=== PATIENT | female | born 1970 | race Hispanic/Latino ===

== ENCOUNTER → 2021-08-25 | Outpatient (CLI) | payer BC | LOC: MAMMO 10:26 | PROVIDERS: ATTEND Family Medicine | DX: Z12.31 Encounter for screening mammogram for malignant neoplasm of breast (principal) | CPT/HCPCS: 77067 ==

== ENCOUNTER 2023-09-16 07:50 | Observation (INO) | payer BC ==
[2023-09-11 13:47] LABS: BASOPHILS % 0.8 % (0.0-1.0); EOSINOPHILS # (AUTO) 0.2 (0.0-0.4); EOSINOPHILS % 4.1 % (0.0-6.0); HEMATOCRIT 35.2 % (34.2-44.1); HEMOGLOBIN 11.6 g/dL (12.0-16.0); LYMPHOCYTES # (AUTO) 1.9 (1.0-3.2); MEAN CORPUSCULAR HEMOGLOBIN 31.7 pg (28-32); MEAN CORPUSCULAR VOLUME 96.2 fL (81-99); MONOCYTES # (AUTO) 0.3 (0.2-0.8); MONOCYTES % 8.5 % (4.4-11.3); NEUTROPHILS # (AUTO) 1.4 (2.1-6.9); NEUTROPHILS % 37.1 % (38.7-80.0); PLATELET COUNT 269 x10e3/uL (140-360); RED BLOOD COUNT 3.66 x10e6/uL (3.6-5.1); RED CELL DISTRIBUTION WIDTH 14.5 % (11.7-14.4); WHITE BLOOD COUNT 3.88 x10e3/uL (4.8-10.8)
[2023-09-11 14:06] LABS: ALBUMIN 3.7 g/dL (3.5-5.0); ALBUMIN/GLOBULIN RATIO 1.1 (0.8-2.0); ANION GAP 15.2 mmol/L (8-16); BILIRUBIN,TOTAL 0.3 mg/dL (0.2-1.2); CALCIUM 8.8 mg/dL (8.4-10.2); CREATININE, SERUM 0.79 mg/dL (0.57-1.11); POTASSIUM 4.2 mmol/L (3.5-5.1); TOTAL PROTEIN 7.2 g/dL (6.5-8.1)
[~2023-09-16] VITALS: Ht 160 cm; Wt 76.2 kg
[~2023-09-16 07:50] MED LIST: FAMOTIDINE20 MG PO
[2023-09-16] MEDS: LACTATED RINGER'S 1,000 ML ONE (08:24)
[2023-09-16] MEDS ORDERED: LIDOCAINE JELLY 2% 10ML URO-JET ONE (08:54)
[2023-09-16] MEDS ORDERED: LIDOCAINE 1% W/EPINEPHRINE 20 ML VIAL ONE (08:54)
[2023-09-16] MEDS ORDERED: BUPIVACAINE 0.25% 30ML SDV ONE (08:54)
[2023-09-16 11:30] VITALS: BP 132/77; PULSE 68; RESP 14; TEMP 97.4; O2SAT 96
[2023-09-16 12:00] VITALS: BP 130/80; PULSE 65; RESP 18; TEMP 97.6; O2SAT 98
[2023-09-16] MEDS ORDERED: LIDOCAINE HCL 2% LOCAL INJ 5 ML SDV VIAL INJ ONE (12:19)
[2023-09-16] MEDS ORDERED: ONDANSETRON HCL INJ 2MG/ML 2ML 2 MG/ML VIAL ONE (12:19)
[2023-09-16] MEDS ORDERED: PROPOFOL IV EMULSION 10 MG/ML 20 ML VIAL ONE (12:19)
[2023-09-16] MEDS ORDERED: SEVOFLURANE INHAL SOLN 250 ML PEN BTL ONE (12:19)
[2023-09-16] MEDS ORDERED: KETOROLAC TROMETHAMINE 30 MG/ML VIAL ONE (12:19)
[2023-09-16] MEDS ORDERED: DEXAMETHASONE SOD PHOS INJ 4 MG/ML SDV ONE (12:19)
[2023-09-16] MEDS ORDERED: MIDAZOLAM HCL 2 MG/2 ML VIAL ONE (12:31)
[2023-09-16] MEDS ORDERED: FENTANYL CITRATE/PF 100MCG/2 ML INJ ONE (12:31)
[2023-09-16] MEDS: KETOROLAC TROMETHAMINE 30 MG/ML VIAL IV PRN (12:43)
[2023-09-16] MEDS: SODIUM CHLORIDE 0.9% 1000ML 1,000 ML IV SCH (12:43)
[2023-09-16 15:47] VITALS: BP 116/66; PULSE 72; RESP 18; TEMP 97.9; O2SAT 97
[2023-09-16] MEDS: HYDROCODONE/APAP 7.5MG-325MG 1 EA TAB PO PRN (19:40)
[2023-09-16 20:03] VITALS: BP 120/80; PULSE 71; RESP 18; TEMP 97.8; O2SAT 97
[2023-09-16 21:17] VITALS: BP 120/80; PULSE 71; RESP 18; TEMP 97.9; O2SAT 97
[2023-09-16 23:45] VITALS: BP 108/64; PULSE 65; RESP 18; TEMP 97.8; O2SAT 95
[2023-09-17 03:41] VITALS: BP 130/79; PULSE 71; RESP 18; TEMP 98.2; O2SAT 95
[2023-09-17 09:20] VITALS: BP 130/79; PULSE 71; RESP 18; TEMP 98.2; O2SAT 95
[2023-09-17 10:15] VITALS: BP 115/74; PULSE 71; RESP 18; TEMP 98.3; O2SAT 98
[2023-09-17] MEDS: HYDROMORPHONE 1MG/1ML INJ IV PRN (10:40)
[2023-09-17 12:53] VITALS: BP 122/69; PULSE 70; RESP 18; TEMP 98.2; O2SAT 98
[2023-09-17 16:45] VITALS: BP 116/61; PULSE 70; RESP 18; TEMP 98.1; O2SAT 97
== END 2023-09-17 18:53 | disposition home or self-care (01) ==
LOC: OR 07:50 → PACU V 10:33 → MERGE 11:30 → MED/SURG 11:47
PROVIDERS: ADMIT Surgery; ATTEND Surgery
DX: K64.8 Other hemorrhoids (principal); K64.5 Perianal venous thrombosis; K21.9 Gastro-esophageal reflux disease without esophagitis; E66.01 Morbid (severe) obesity due to excess calories; Z68.29 Body mass index [BMI] 29.0-29.9, adult; F17.200 Nicotine dependence, unspecified, uncomplicated; Z01.810 Encounter for preprocedural cardiovascular examination; Z01.812 Encounter for preprocedural laboratory examination; Z71.81 Spiritual or religious counseling
CPT/HCPCS: 36415; 46260; 80053; 85025; 88304; 93005; G0378 ×2; J0690; J1100; J1170; J1885; J2001; J2250; J2405; J2704; J3010; J7030 ×2; J7121